=== PATIENT | male | born 1975 | race Caucasian/White ===

== ENCOUNTER → 2020-11-24 | Outpatient (CLI) | payer MEDICARE, OTHER | LOC: ECHO 12:19 | DX: Z09 Encounter for follow-up examination after completed treatment for conditions other than malignant neoplasm (principal); Z87.74 Personal history of (corrected) congenital malformations of heart and circulatory system; Z95.2 Presence of prosthetic heart valve | CPT/HCPCS: ECHO; 93306 ==

== ENCOUNTER 2021-05-14 19:51 | Inpatient (IN) | payer MEDICARE, OTHER ==
[~2021-05-14] VITALS: Ht 190.5 cm; Wt 98.9 kg
[2021-05-14 20:35] LABS: HEMOGLOBIN 13.6 gm/dl (14.0-17.5); RED BLOOD COUNT 4.61 M/UL (4.20-5.50)
[2021-05-15 00:36] LABS: HEMOGLOBIN 13.2 gm/dl (14.0-17.5); RED BLOOD COUNT 4.48 M/UL (4.20-5.50); WHITE BLOOD COUNT 9.6 K/UL (4.5-11.0)
[2021-05-15] MEDS ORDERED: METOPROLOL SUCC25 MG PO (02:37)
[2021-05-15] MEDS ORDERED: CRESTOR20 MG PO (02:42)
[2021-05-15] MEDS ORDERED: PAROXETINE HCL10 MG PO (02:42)
[2021-05-15] MEDS ORDERED: BUPRENO-NALOX1 EACH SL (02:42)
[2021-05-15] MEDS ORDERED: CYANOCOBAL1000 MCG/1 SC (09:18)
--- NOTE | 2021-05-15 13:12 | NUR ---
INFORM MD OF NEW TROPONIN LEVEL
[2021-05-16 01:46] LABS: HEMOGLOBIN 11.6 gm/dl (14.0-17.5); WHITE BLOOD COUNT 8.1 K/UL (4.5-11.0)
[2021-05-16 01:48] LABS: RED BLOOD COUNT 3.94 M/UL (4.20-5.50)
[2021-05-16] MEDS ORDERED: ASPIRIN EC81 MG PO (11:47)
--- NOTE | 2021-05-16 16:13 | NUR ---
05/16/21 PATIENT DESAT TO 85% ON ROOM AIR
[2021-05-16] MEDS ORDERED: LEVOFLOXACIN500 MG PO (16:22)
[2021-05-17 02:56] LABS: HEMOGLOBIN 11.3 gm/dl (14.0-17.5); RED BLOOD COUNT 3.84 M/UL (4.20-5.50); WHITE BLOOD COUNT 6.2 K/UL (4.5-11.0)
[2021-05-17 03:24] LABS: BUN/CREATININE RATIO 15 (0-10)
--- NOTE | 2021-05-17 10:05 | NUR ---
05/17/21 1005 ROOM AIR SATURATION 96%
[2021-05-21 16:11] LABS: ORGANISM ID Not indicated. (.); SPECIMEN SOURCE Urine (.); STREPTOCOCCUS PNEUMONIAE AG Negative (Negative)
== END 2021-05-17 10:55 | disposition home or self-care (01) | DRG 682 ==
LOC: ER1 19:51 → PROG CARE 23:46 → CDU 23:46 → PROG CARE 05-15 01:35
PROVIDERS: Internal Medicine; Internal Medicine Nephrology; Physician Assistant Medical; ADMIT Internal Medicine
PROC: B24BZZZ Ultrasonography of Heart with Aorta (ICD-10-PCS; principal; 2021-05-15)
DX: N17.0 Acute kidney failure with tubular necrosis (principal); I21.A1 Myocardial infarction type 2; J18.9 Pneumonia, unspecified organism; F11.20 Opioid dependence, uncomplicated; Z20.822 Contact with and (suspected) exposure to COVID-19; F41.1 Generalized anxiety disorder; E86.0 Dehydration; I10 Essential (primary) hypertension; R09.02 Hypoxemia; E78.5 Hyperlipidemia, unspecified; R31.9 Hematuria, unspecified; Z95.828 Presence of other vascular implants and grafts; Z79.899 Other long term (current) drug therapy; Z86.16 Personal history of COVID-19; Z80.51 Family history of malignant neoplasm of kidney; Z79.82 Long term (current) use of aspirin; Z87.74 Personal history of (corrected) congenital malformations of heart and circulatory system
CPT/HCPCS: ECHO; 0240U; 36415; 71045; 71250; 78452; 80048; 80053; 80061; 81001; 82550; 82553; 82570; 83036; 83735; 83880; 83930; 83935; 84100; 84132; 84133; 84156; 84300; 84439; 84443; 84484; 84550; 85025; 85027; 86140; 87040; 87086; 87278; 87899; 89050; 93005; 93017; 93306; 94640; 94664; 94760; 99285; A9502; G0378; J1650; J1956; J2405; P9047